=== PATIENT | female | born 1970 | race Caucasian/White ===

== ENCOUNTER 2016-12-06 06:18 | Day surgery (SDC) | payer BC ==
[2016-11-26 12:20] VITALS: BMI 34.7
[2016-12-06] MEDS ORDERED: HEPARIN NA (PORCINE) 5,000 UNITS/ML 1ML VIAL ONE (06:44)
[2016-12-06] MEDS ORDERED: LIDOCAINE HCL 1%, 10 MG/ML (20ML VIAL) ONE (07:29)
[2016-12-06] MEDS ORDERED: BACITRACIN 15 GM TUBE TOPICAL OINTMENT ONE (07:29)
[2016-12-06] MEDS ORDERED: EPINEPHrine/PF 1 MG/1 ML (1:1,000) AMPULE ONE (07:30)
[2016-12-06] MEDS ORDERED: BUPIVACAINE HCL/PF 2.5 MG/ML - 30 ML VIAL IJ ONE (07:31)
[2016-12-06] MEDS ORDERED: MIDAZOLAM HCL 2 MG/2 ML SINGLE DOSE VIAL ONE (07:37)
[2016-12-06] MEDS ORDERED: PROPOFOL 20 ML ONE ×2 (07:41→08:37)
[2016-12-06] MEDS ORDERED: SUCCINYLCHOLINE CHLORIDE 200 MG/10 ML VIAL ONE (07:41)
[2016-12-06] MEDS ORDERED: ROCURONIUM BROMIDE 50 MG/5 ML VIAL ONE (07:41)
[2016-12-06] MEDS ORDERED: LIDOCAINE HCL/PF 2% SDV 5ML VIAL ONE (07:41)
[2016-12-06] MEDS ORDERED: ceFAZolin SODIUM 1 GM VIAL ONE ×2 (08:03→14:27)
[2016-12-06] MEDS ORDERED: HYDROmorphone HCL/PF 1 MG/ML VIAL (FOR PYXIS CHARGING ONLY) ONE (08:07)
[2016-12-06] MEDS ORDERED: BUPIVACAINE HCL/PF 0.25% (2.5MG/ML) 10 ML VIAL IJ ONE (11:00)
[2016-12-06] MEDS ORDERED: PROMETHAZINE HCL 25 MG/1 ML VIAL IVPUSH PRN (12:19)
[2016-12-06] MEDS ORDERED: ONDANSETRON 4 MG/2 ML VIAL IVPUSH PRN (12:19)
[2016-12-06] MEDS ORDERED: oxyCODONE HCL 5 MG TABLET PO PRN (12:19)
--- NOTE | 2016-12-06 12:23 | OP ---
Operative Note - Note: Operative Date: 12/06/16 Pre-Operative Diagnosis: abdominal deformity Operation: panniculectomy Findings: none Implants: none Post-Operative Diagnosis: Same as Pre-op Surgeon: Helder Hernandez Collections Attorney: Pankaj Cameron Anesthesia: General Specimens Removed: skin and fat Estimated Blood Loss (mls): 200 Drains & Tubes with Location: lisa x 3 Operative Report Dictated: Yes
[2016-12-06] MEDS ORDERED: LACTATED RINGERS SOLUTION 1,000 ML IV SCH (12:30)
[2016-12-06] MEDS ORDERED: ONDANSETRON 4 MG/2 ML VIAL IVPB PRN (12:57)
--- NOTE | 2016-12-06 13:59 | SURG ---
Surgery Aircraft Pneudraulics Repairer Note Aircraft Pneudraulics Repairer: Pankaj Cameron PA-C Date of Service: 12/06/16 Diagnosis: abdominal deformity Procedure: panniculectomy I was present for the entirety of the operative procedure. For further detail, please refer to operative report. Visit type - Case Type Case Type: Scheduled Admission - New patient This patient is new to me today: Yes Date on this admission: 12/06/16
[2016-12-06] MEDS ORDERED: CEFAZOLIN 1 GM/D5W 50 ML IVPB SCH (15:00)
[2016-12-06] MEDS: oxyCODONE HCL 5 MG TABLET PO PRN ×2 (18:36→21:34)
[2016-12-06] MEDS: CEFAZOLIN 1 GM/D5W 50 ML IVPB SCH (21:36)
[2016-12-07] MEDS: CEFAZOLIN 1 GM/D5W 50 ML IVPB SCH ×2 (03:00→09:00)
[2016-12-07 06:59] VITALS: BP 116/59; PULSE 67; TEMP 99
[2016-12-07] MEDS ORDERED: LEVOTHYROXINE NA 50 MCG TABLET (FP) PO SCH (07:00)
--- NOTE | 2016-12-07 07:12 | PN ---
Progress Note (short form) - Note Progress Note: VSS AF, ambulating, urinating, all tissues viable, OK for discharge with instructions
[2016-12-07] MEDS: oxyCODONE HCL 5 MG TABLET PO PRN (07:36)
[2016-12-07] MEDS ORDERED: HEPARIN NA (PORCINE) 5,000 UNITS/ML 1ML VIAL SQ SCH (08:00)
[2016-12-07] MEDS ORDERED: PT OWN MED DRAWER 7, Y5N ONE (09:02)
--- NOTE | 2016-12-07 09:39 | OP ---
DATE OF OPERATION: 12/06/2016 PROCEDURE: Panniculectomy with additional umbilical translocation. ATTENDING PHYSICIAN: Helder Gutierrez MD 1ST GUM SPRAYER: GISELL Henry PREOPERATIVE DIAGNOSES: Abdominal deformity, panniculitis, status post massive weight loss. POSTOPERATIVE DIAGNOSES: Abdominal deformity, panniculitis, status post massive weight loss. Patient is marked in the holding area. Subcutaneous heparin 5000 units are given preoperatively. Sequential compression stockings and CLEMENCIA hose are applied in the holding area. She is marked in the holding area awake and aware of incisions and resulting scars. Risks, benefits, alternatives to procedure are discussed. Understands and agrees to proceed. She is brought to the operating room. A Tran catheter is placed after anesthesia is given. Ancef 2 g are given. Sequential compression stockings are applied and are functioning. She is positioned and padded by surgical anesthesia team. She is prepped and draped in standard surgical fashion. A timeout is called. Patient, procedure sites, sides are verified. The procedure is as follows. Incision is made along the infrapannicular crease. Dissection carried down to the level of the abdominal wall fascia. Dissection was then carried along the abdominal wall fascia to the level of the umbilicus. Umbilicus was circumcised, developing a fibrofatty stalk, developed down to the fascial wall. The abdominoplasty flap is then elevated to the xiphoid process in the midline and margins bilaterally. Perforating blood vessels are identified and ligated. The midline plication is then performed with a series of interrupted buried [id number] 1 Prolene suture followed by a running locking 1 Prolene suture both superior and inferior to the umbilicus. The patient is brought to a flexed position where the skin and fat are transposed. Excess skin and fat are removed. The skin is tailor tacked where the umbilicus is then translocated through a Star Trek pattern defect in the abdominal wall. It is secured to the borders with a series of interrupted buried deep dermal 3-0 Monocryl suture followed by a running 5-0 nylon suture. The tumescent fluid is then infiltrated into the bilateral flanks and the mons pubis. A total of 1500 mL of tumescent fluid is used. A full 30 minutes is awaited for hemostatic effect of the fluid. While this is occurring, the closure is performed with a series of interrupted buried superficial fascial system 2 Vicryl suture followed by a series of interrupted buried deep dermal 3-0 Monocryl suture followed by a running subcuticular 3-0 Monocryl suture. Drains are brought out through several points within the incision. There is a superior most drain which is the centrally placed drain. Then, there is a drain on the right lateral border of the incision and a drain on the left lateral border of the incision. All drains are secured with 2-0 silk drain sutures, placed to bulb suction. These are J-P flat J-P drains. Patient is dressed with bacitracin, Xeroform to the umbilicus, Steri-Strips to the abdominoplasty incision, ABD gauze, Hypafix tape, and a surgical binder. She is maintained in a flexed position, transferred to her hospital bed, transferred to recovery without complication. It should be noted that prior to final closure liposuction had been performed. Total lipoaspirate is 100 mL from the mons pubis and 600 mL from each flank. HELDER GUTIERREZ M.D. [id number]
[2016-12-07] MEDS ORDERED: LIOTHYRONINE SODIUM 5 MCG TABLET PO SCH (10:00)
[2016-12-07] MEDS ORDERED: LACTOBACILLUS ACIDOPHILUS 1 EACH TAB (FP) PO SCH (10:00)
[2016-12-07] MEDS ORDERED: DULoxetine HCL 30 MG CAPSULE.DR (FP) PO SCH (10:00)
--- NOTE | 2016-12-07 10:42 | PN ---
Progress Note (short form) - Note Progress Note: 46F POD1 s/p panniculectomy under GA-ETT doing well. Pt reports no anesthetic complications, states that pain is well controlled. Tolerating orals well.
--- NOTE | 2016-12-08 14:41 | PATH ---
Surgical Pathology Report Patient Name: FRANCIS KEE [facility]. Rec. #: [id number] /Age/Gender: 1970 (Age: 46) / F Account: [id number] Location: [facility] AMBULATORY Taken: 12/06/2016 Received: 12/06/2016 Reported: 12/08/2016 Physicians: Helder Hernandez Specimen(s) Received ABDOMINAL SKIN AND TISSUE Clinical History Panniculitis Final Diagnosis ABDOMINAL SKIN AND TISSUE, PANNICULECTOMY: ADIPOSE TISSUE AND SKIN, DESCRIBED (GROSS EXAMINATION ONLY). Electronically Signed Padmini Porter M.D. Gross Description Received in formalin labeled "abdominal skin and tissue," is a 3686 g aggregate of 2 hagen, triangular portions of skin with underlying soft tissue. The specimen is average 28.0 x 20.0 x 6.5 cm each. The epidermal surfaces are unremarkable. Sectioning reveals unremarkable yellow, lobulated adipose tissue. No lesions are identified. No sections are submitted, gross only. 12/07/2016 [facility]12/07/2016
== END 2016-12-07 10:04 | disposition home or self-care (01) ==
LOC: FASU 06:18 → FM/S 15:32 → FASU 12-07 10:04
PROVIDERS: ATTEND Plastic Surgery
PROC: 0J083ZZ Alteration of Abdomen Subcutaneous Tissue and Fascia, Percutaneous Approach (ICD-10-PCS; 2016-12-06)
PROC: 0J080ZZ Alteration of Abdomen Subcutaneous Tissue and Fascia, Open Approach (ICD-10-PCS; principal; 2016-12-06 08:25)
DX: L98.7 Excessive and redundant skin and subcutaneous tissue (principal); M79.3 Panniculitis, unspecified; E66.9 Obesity, unspecified; Z68.34 Body mass index [BMI] 34.0-34.9, adult; R63.4 Abnormal weight loss
CPT/HCPCS: 84703; 88300-TC; 94010; 94760; J1644